=== PATIENT | female | born 1970 | race Caucasian/White ===

== ENCOUNTER → 2017-11-15 | Emergency (ER) | payer OTHER ==
[~2017-11-15] VITALS: Ht 172.7 cm; Wt 59.0 kg
== END | disposition home or self-care (01) ==
LOC: ER 19:37
DX: N39.0 Urinary tract infection, site not specified (principal); E86.0 Dehydration

== ENCOUNTER 2019-06-17 09:53 | Emergency (ER) | payer OTHER ==
[~2019-06-17] VITALS: Ht 172.7 cm; Wt 60.8 kg
[2019-06-17] MEDS ORDERED: BACTRIM DS TAB1 EACH PO (10:16)
== END 2019-06-17 15:26 | disposition home or self-care (01) ==
LOC: ER 09:53
DX: N75.8 Other diseases of Bartholin's gland (principal)

== ENCOUNTER 2019-07-01 22:23 | Emergency (ER) | payer OTHER ==
[~2019-07-01] VITALS: Ht 172.7 cm; Wt 59.4 kg
[~2019-07-01 22:23] MED LIST: BACTRIM DS TAB1 EACH PO
== END 2019-07-02 03:07 | disposition left against medical advice (07) ==
LOC: ER 22:23
DX: Z53.20 Procedure and treatment not carried out because of patient's decision for unspecified reasons (principal)